=== PATIENT | male | born 1980 | race Caucasian/White ===

== ENCOUNTER 2016-11-11 10:53 | Emergency (ER) | payer MEDICAID, OTHER ==
[2016-11-11] MEDS ORDERED: OXYMETAZOLINE 30 ML NASAL SPRAY ONE (11:02)
[2016-11-11 11:04] VITALS: BP 155/108; PULSE 86; RESP 16; TEMP 99; O2SAT 96
[2016-11-11] MEDS ORDERED: OXYMETAZOLINE 30 ML NASAL SPRAY EACHNARE ONE (11:04)
[2016-11-11] MEDS ORDERED: SILVER NITRATE APPLICATOR 1 APPL TP ONE ×2 (11:08→11:11)
[2016-11-11] MEDS ORDERED: COCAINE HCL 4% 4 ML BTL TP ONE ×2 (11:08→11:10)
--- NOTE | 2016-11-11 11:45 | EDPHY ---
H & P Stated Complaint: nose bleed Time Seen by Provider: 11/11/16 11:01 HPI/ROS: CHIEF COMPLAINT: Epistaxis HISTORY OF PRESENT ILLNESS: Patient is a 35-year-old man who comes to the emergency department complaining of epistaxis. He states that he has had frequent nosebleeds his entire life. This morning it began around 7 last for several hours. Was primarily from the right naris but some from both. He was able to go to work with a packing he had done at home. He continued to bleed however and he was sent here. He denies any trauma. He denies any recent fevers or infections. His bleeding stopped prior to arriving. REVIEW OF SYSTEMS: Constitutional: denies: chills, fever, recent illness, recent injury EENTM: See HPI Respiratory: denies: cough, shortness of breath Cardiac: denies: chest pain, irregular heart rate, lightheadedness, palpitations Gastrointestinal/Abdominal: denies: abdominal pain, diarrhea, nausea, vomiting, blood streaked stools Genitourinary: denies: dysuria, frequency, hematuria, pain Musculoskeletal: denies: joint pain, muscle pain Skin: denies: lesions, rash, jaundice, bruising Neurological: denies: headache, numbness, paresthesia, tingling, dizziness, weakness Hematologic/Lymphatic: denies: blood clots, easy bleeding, easy bruising Immunologic/allergic: denies: HIV/AIDS, transplant EXAM: GENERAL: Well-appearing, well-nourished and in no acute distress. HEAD: Atraumatic, normocephalic. EYES: Pupils equal round and reactive to light, extraocular movements intact, sclera anicteric, conjunctiva are normal. ENT: Right-sided anterior septal bleeding now clotted. TMs normal, nares patent, oropharynx clear without exudates. Moist mucous membranes. NECK: Normal range of motion, supple without lymphadenopathy or JVD. LUNGS: Breath sounds clear to auscultation bilaterally and equal. No wheezes rales or rhonchi. HEART: Regular rate and rhythm without murmurs, rubs or gallops. ABDOMEN: Soft, nontender, normoactive bowel sounds. No guarding, no rebound. No masses appreciated. BACK: No CVA tenderness, no spinal tenderness, step-offs or deformities EXTREMITIES: Normal range of motion, no pitting or edema. No clubbing or cyanosis. NEUROLOGICAL: Cranial nerves II through XII grossly intact. Normal speech, normal gait. 5/5 strength, normal movement in all extremities, normal sensation PSYCH: Normal mood, normal affect. SKIN: Warm, dry, normal turgor, no visible rashes or lesions. Source: Patient Exam Limitations: No limitations - Personal History Current Tetanus/Diphtheria Vaccine: Yes - Medical/Surgical History Hx Asthma: No Hx Chronic Respiratory Disease: No Hx Diabetes: No Hx Cardiac Disease: No Hx Renal Disease: No Hx Cirrhosis: No Hx Alcoholism: No Hx HIV/AIDS: No Hx Splenectomy or Spleen Trauma: No Other PMH: ADHD/ Bipolar, jaw and wrist surgery - Family History Significant Family History: No pertinent family hx - Social History Smoking Status: Never smoked Alcohol Use: Sober Drug Use: None Constitutional: Initial Vital Signs Temperature (C) 37.2 C 11/11/16 11:02 Heart Rate 86 11/11/16 11:02 Respiratory Rate 16 11/11/16 11:02 Blood Pressure 155/108 H 11/11/16 11:02 O2 Sat (%) 96 11/11/16 11:02 O2 Delivery Mode Room Air Allergies/Adverse Reactions: No Known Allergies Allergy (Verified 11/22/14 08:21) Home Medications: Medication Instructions Recorded Lamictal 09/15/14 Lexapro 09/15/14 Adderall 10 MG (RX) 11/22/14 Medical Decision Making ED Course/Re-evaluation: Patient's bleeding had stopped essentially. He was given Afrin and then a cocaine soaked cotton ball was use for anesthesia. Then cauterized the right side of his nasal septum. He tolerated the procedure well. His bleeding is controlled. Advised him to follow up with ENT. He declines further workup or testing at this time. Differential Diagnosis: Partial list of the Differential diagnosis considered include but were not limited to; epistaxis, anterior bleed, posterior bleed and although unlikely based on the history and physical exam, I also considered infection, trauma. I discussed these differential diagnoses and the plan with the patient as well as the usual and expected course. The patient understands that the diagnosis is provisional and that in medicine we are not always correct and that further workup is often warranted. Usual and customary warnings were given. All of the patient's questions were answered. The patient was instructed to return to the emergency department should the symptoms at all worsen or return, otherwise to followup with the physician as we discussed. - Data Points Medications Given: Discontinued Medications Cocaine HCl (Cocaine Hcl) 1 bijan TP EDNOW ONE Stop: 11/11/16 11:11 Last Admin: 11/11/16 11:10 Dose: 1 spr Oxymetazoline HCl (Afrin Nasal [place]) 2 sprays EACHNARE EDNOW ONE Stop: 11/11/16 11:05 Last Admin: 11/11/16 11:05 Dose: 2 sprays Silver Nitrate/Potassium Nitrate (Silver Nitrate Applicator) 1 each TP EDNOW ONE Stop: 11/11/16 11:12 Last Admin: 11/11/16 11:12 Dose: 1 each Departure - Departure Disposition: Home, Routine, Self-Care Clinical Impression: Acute anterior epistaxis Condition: Fair Instructions: Nosebleed (ED) Referrals: NONE *PRIMARY CARE P,. [Primary Care Provider] - As per Instructions Cici Chamorro MD [Medical Doctor] - As per Instructions
== END 2016-11-11 11:57 | disposition home or self-care (01) ==
LOC: CED 10:53
PROC: 2Y41X5Z Packing of Nasal Region using Packing Material (ICD-10-PCS; principal; 2016-11-11)
DX: R04.0 Epistaxis (principal)